=== PATIENT | female | born 1975 | race Caucasian/White ===

== ENCOUNTER → 2017-01-12 | Outpatient (CLI) | payer BC ==
--- NOTE | 2017-01-12 12:49 | CR ---
EXAM DATE: 01/12/17 PATIENT'S AGE: 42 Patient: ZELDA GARCIA Facility: [place], [place] Site Site : 1975 Study: XRay Extremity Left [id number] toe-01/12/2017 11:54:49 AM Ordering Physician: Darshan Ramirez Final Report: INDICATION: Pain in Toe, Stubbed on a Step LEFT GREAT TOE No fracture, dislocation, or destructive lesion of bone is seen. No significant arthritic changes or soft tissue abnormalities are identified. IMPRESSION: Negative left great toe radiographs. DARSHAN RIVERA MD [facility] Dictated by: Ramos Rivera MD @ 01/12/2017 12:03:52 (Electronic Signature) Report Signed by Proxy and Original Signed Document filed in the Medical Record. [facility]
== END ==
LOC: MW.CHFP 10:07
PROVIDERS: ATTEND Student in an Organized Health Care Education/Training Program
DX: M79.675 Pain in left toe(s) (principal)
CPT/HCPCS: 73660-26-TA; 73660-TA

== ENCOUNTER → 2017-01-26 | Outpatient (CLI) | payer BC ==
--- NOTE | 2017-01-27 09:48 | CR ---
EXAM DATE: 01/26/17 PATIENT'S AGE: 42 Patient: ZELDA GARCIA Facility: [place], [place] Site . Site : 1975 Study: XRay Extremity Left [id number]/26/2017 10:55:59 AM Ordering Physician: James Sexton Final Report: HISTORY: Injury to left great toe. Findings/Impression: Three views of the left great are compared 12 January 2017. There is normal alignment. No acute or subacute fracture line is identified. No radiopaque foreign body. Dictated by Laurie Peck MD @ Jan 26 2017 10:53PM (Electronic Signature) Report Signed by Proxy and Original Signed Document filed in the Medical Record. [facility]
== END ==
LOC: MW.CHFP 09:01
PROVIDERS: ATTEND Student in an Organized Health Care Education/Training Program
DX: M79.675 Pain in left toe(s) (principal)
CPT/HCPCS: 73660-26-TA; 73660-TA